=== PATIENT | female | born 1960 | race Caucasian/White ===

== ENCOUNTER 2018-05-23 15:36 | Emergency (ER) | payer OTHER ==
--- OUTSIDE RECORDS SUMMARY | 2018-05-23 15:40 | XMS REPORT ---
:1960 External Reference #:[id number] Author Organization [employer] Address [address] [place] [address] Phone [phone] Care Team Providers Name Role Phone Doyle Juarez MD Primary Care Physician Unavailable Payers Type Date Identification Numbers Payment Provider Subscriber Commercial Policy Number: [id number] [employer] Pramod [employer] Number: [id number] [address] PayID: [id number] [place] [address] Problems Date Description Provider Status Onset: 11/01/2017 Localized, primary osteoarthritis Marjorie Johnston M.D. 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 by 1mg every 8 weeks Loratadine Active Tablets 10mg 1 by mouth Unknown 000 every day prn Ibuprofen Active Tablets 200mg as needed Unknown 000 (very rare) Tylenol 0 Active Unknown 1000MG 000 Vitamin D-3 Active Unknown 000 Colyte With Active Solution 240gm only when Unknown Flavor Packs 000 Rec traveling Prednisone Hx Unknown 15MG 000 - 018 Medications Administered in Office Medication Date Status Form Strength Qnty SIG Indications Ordering Provider Depomedrol Administered Injection Marjorie 40MG 018 [place] Vital Signs Date Vital Result Comment 05/21/2018 Height 65 inches 5'5" Weight 157.00 lb Heart Rate 66 /min BP Systolic Sitting 117 mmHg BP Diastolic Sitting 75 mmHg Respiratory Rate 14 /min Pain Level 1 BMI (Body Mass Index) 26.1 kg/m2 03/07/2018 Height 65 inches 5'5" Weight 155.50 lb Heart Rate 70 /min BP Systolic Sitting 123 mmHg BP Diastolic Sitting 79 mmHg Respiratory Rate 14 /min Pain Level 1 BMI (Body Mass Index) 25.9 kg/m2 12/11/2017 Height 65 inches 5'5" Weight 154.00 lb BP Systolic 132 mmHg BP Diastolic 80 mmHg Body Temperature 98.0 F Pain Level 0 BMI (Body Mass Index) 25.6 kg/m2 11/01/2017 Height 64 inches 5'4" Heart Rate 82 /min BP Systolic 120 mmHg BP Diastolic 80 mmHg Respiratory Rate 20 /min Body Temperature 98.9 F Pain Level 0 02/09/2015 Height 64 inches 5'4" Weight 170.00 lb Heart Rate 64 /min BP Systolic 131 mmHg BP Diastolic 83 mmHg Pain Level 1 BMI (Body Mass Index) 29.2 kg/m2 01/07/2015 Height 64 inches 5'4" Heart Rate 63 /min BP Systolic 136 mmHg BP Diastolic 86 mmHg Pain Level 97 12/18/2014 Height 64 inches 5'4" Weight 170.00 lb Heart Rate 70 /min BP Systolic 137 mmHg BP Diastolic 96 mmHg Pain Level 1 BMI (Body Mass Index) 29.2 kg/m2 Results Test Date Test Result H/L Range Note Laboratory test finding 05/17/2018 C Reactive Protein 1.31 mg/L <8.01 Erythrocyte Sed Rate 8 mm/Hr 0-30 Basic Metabolic Panel 05/17/2018 Sodium 142 mmol/L 135-145 Potassium 4.1 mmol/L 3.5-5.0 Chloride 107 mmol/L 101-111 Co2 Carbon Dioxide 29 mmol/L 22-32 Anion Gap 6 mmol/L 2-11 Glucose 83 mg/dL 70-100 Blood Urea Nitrogen 17 mg/dL 6-24 Creatinine 1.03 mg/dL High 0.51-0.95 BUN/Creatinine Ratio 16.5 8-20 Calcium 9.2 mg/dL 8.6-10.3 Egfr Non- 54.8 >60 Egfr 66.4 >60 1 Anca AB Ser If 05/17/2018 C-Anca Negative Negative P-Anca Negative Negative 2 Cryoglobulin & Cryofibrinogen 05/17/2018 Cryoglobulin Negative %ppt Negative 3 Cryofibrinogen Negative Negative 4 Laboratory test finding 05/17/2018 Glomerular Basement <0.2 U 5 Membrane Laboratory test finding 03/07/2018 C Reactive Protein 6.49 mg/L <8.01 Basic Metabolic Panel 03/07/2018 Sodium 141 mmol/L 135-145 Potassium 4.4 mmol/L 3.5-5.0 Chloride 104 mmol/L 101-111 Co2 Carbon Dioxide 29 mmol/L 22-32 Anion Gap 8 mmol/L 2-11 Glucose 107 mg/dL High 70-100 Blood Urea Nitrogen 25 mg/dL High 6-24 Creatinine 0.97 mg/dL High 0.51-0.95 BUN/Creatinine Ratio 25.8 High 8-20 Calcium 9.4 mg/dL 8.6-10.3 Egfr Non- 59.0 >60 Egfr 71.4 >60 6 Laboratory test finding 03/07/2018 Vitamin D, 1,25 Dihydroxy 54 pg/mL 18- 78 7 Erythrocyte Sed Rate 10 mm/Hr 0-30 Connective Tissue Panel 03/07/2018 Anti-Nuclear Antibody 0.6 U 8 Cyclic Citrullinated Peptide <15.6 U 9 Interpretation See Comment 10 Laboratory test finding 12/25/2014 Urine Negative Negative 11 1 Because ethnic data is not always readily available, this report includes an eGFR for both -Americans and non- Americans. The National Kidney Disease Education Program (NKDEP) does not endorse the use of the MDRD equation for patients that are not between the ages of 18 and 70, are , have extremes of body size, muscle mass, or nutritional status, or are non- or non-. According to the National Kidney Foundation, irrespective of diagnosis, the stage of the disease is based on the level of kidney function: Stage Description GFR(mL/min/1.73 m(2)) 1 Kidney damage with normal or decreased GFR 90 2 Kidney damage with mild decrease in GFR 60-89 3 Moderate decrease in GFR 30-59 4 Severe decrease in GFR 15-29 5 Kidney failure <15 (or dialysis) 2 Negative for cANCA and pANCA patterns by immunofluorescence. ADDITIONAL INFORMATION This test was developed and its performance characteristics determined by [facility] in a manner consistent with CLIA requirements. This test has not been cleared or approved by the U.S. Food and Drug Administration. Test Performed by: [place] [address] 3 This test is negative at 24 hours. All samples are held and reviewed again at 7 days. If delayed precipitation occurs after 7 days, Immunofixation will be performed and an additional report will follow. 4 Test Performed by: [facility] - [address] [address] 5 REFERENCE VALUE <1.0 (Negative) Test Performed by: [address] [address] 6 Because ethnic data is not always readily available, this report includes an eGFR for both -Americans and non- Americans. The National Kidney Disease Education Program (NKDEP) does not endorse the use of the MDRD equation for patients that are not between the ages of 18 and 70, are , have extremes of body size, muscle mass, or nutritional status, or are non- or non-. According to the National Kidney Foundation, irrespective of diagnosis, the stage of the disease is based on the level of kidney function: Stage Description GFR(mL/min/1.73 m(2)) 1 Kidney damage with normal or decreased GFR 90 2 Kidney damage with mild decrease in GFR 60-89 3 Moderate decrease in GFR 30-59 4 Severe decrease in GFR 15-29 5 Kidney failure <15 (or dialysis) 7 ADDITIONAL INFORMATION This test was developed and its performance characteristics determined by [facility] in a manner consistent with CLIA requirements. This test has not been cleared or approved by the U.S. Food and Drug Administration. Test Performed by: [facility] [place] - [facility] [address] [place] [address] 8 REFERENCE VALUE <=1.0 (Negative) 9 REFERENCE VALUE <20.0 (Negative) 10 Tests for antibodies to dsDNA and PHIL antigens are not performed automatically unless the QUINTON result is > or= 3.0 U. Studies performed at [facility] indicate that positive QUINTON results <3.0 U are rarely accompanied by positive second order tests. Test Performed by: [facility] - [address] [address] 11 If is still suspected, please repeat test after 48 to 72 hours. This test detects intact HCG only and is indicated for the early detection of . Procedures Date CPT Code Description Status 04/03/2018 Bone Mineral Density Test Completed 11/01/2017 73403 Inject/Drain Joint/Bursa Major W/O US Completed 09/04/2017 80637 Allergy Test, Patch Or Application Completed 12/25/2014 03920 Arthroscopy,Knee,Meniscectomy Medial Or Lateral Completed 12/25/2014 18948 Arthroscopy,Knee,Meniscectomy Medial Or Lateral Completed Encounters Type Date Location Provider CPT E/M Dx Office Visit 05/21/2018 [facility] Mike Landers M.D. 67103 M35.3 9:20a Of Jessica R79.82 Z79.52 N18.9 Office Visit 03/07/2018 9:00a [facility] Mike Landers 86646 M35.3 Jessica Adame R79.82 Z79.52 M17.12 Office Visit 12/11/2017 8:00a [facility] Marjorie Johnston M.D. 45333 M17.12 C.M.A. M25.462 M25.562 Office Visit 11/01/2017 9:00a [facility]jor[facility] Johnston M.D. 72962 M17.12 C.M.A. M25.462 M25.562 Office Visit 09/07/2017 10:00a [facility] Dermatology Russ Gó[place] [address] L30.8 Office Visit 09/06/2017 10:00a [facility] Suma Gó[place] [address] L30.8 Office Visit 08/17/2017 9:00a [facility] Suma Gó[place] [address] L30.8 Office Visit 12/18/2014 8:00a [facility]jor[facility] Johnston M.D. 36385 715.96 C.M.A. 719.06 836.0 Plan of Care Future Appointment(s):09/20/2018 9:00 am - Mike Landers M.D. at [facility]05/21/2018 - Mike Landers M.D.M35.3 Polymyalgia pijtpigtfdX64.82 Elevated C-reactive protein (CRP)Z79.52 intermediate (current) use of systemic tynbekpqX51.9 Chronic kidney disease, unspecifiedFollow up: FOllow up in 4 months or sooner if needed
[2018-05-23 16:56] VITALS: BP 130/86
--- NOTE | 2018-05-23 17:09 | UC ---
Skin Complaint HPI - HPI Summary HPI Summary: 58 yo female presents with fish hook stuck in her left middle finger. She is unsure the date of her last tetanus. - History of Current Complaint Chief Complaint: UCUpperExtremity Time Seen by Provider: 05/23/18 17:09 Stated Complaint: FB IN HAND Hx Obtained From: Patient Onset/Duration: Sudden Onset Onset Severity: Mild Current Severity: Mild Pain Intensity: 1 Pain Scale Used: 0-10 Numeric - Allergy/Home Medications Allergies/Adverse Reactions: Allergies Allergy/AdvReac Type Severity Reaction Status Date / Time beef derived (bovine) Allergy Hives Verified 05/23/18 17:02 ibuprofen Allergy Hives Verified 05/23/18 17:02 SEASONAL ENVIRONMENTAL Allergy SINUS Uncoded 12/25/14 10:28 ALLERGIES IRRITATION Home Medications: Home Medications Glaucosomate 05/23/18 [History] Ibuprofen TAB* [Advil TAB*] 200 mg PO 16 PRN 05/23/18 [History Confirmed ] predniSONE [Prednisone 5 MG TAB] 5 mg PO DAILY 05/23/18 [History Confirmed 05/23] Review of Systems Constitutional: Negative Skin: Other - Fish hook left middle finger Respiratory: Negative Cardiovascular: Negative Musculoskeletal: Negative Neurological: Negative Psychological: Negative All Other Systems Reviewed And Are Negative: Yes PMH/Surg Hx/FS Hx/Imm Hx - Additional Past Medical History Additional PMH: None Previously Healthy: Yes - Surgical History Surgical History: Yes Surgery Procedure, Year, and Place: 1987 , [place]. 1980 LEFT KNEE ARTHROSCOPIC SURGERY, [place]. 1987 & 2007 UMBILICAL HERNIA REPA[place] [facility] [facility] [place]. 2004 ENDOMETRIAL ABLATION, [facility] [place] - Family History Known Family History: Positive: Hypertension - Social History Occupation: Employed Full-time Lives: With Family Alcohol Use: Weekly Alcohol Amount: 1 PER WEEK Substance Use Type: None Smoking Status (MU): Never Smoked Tobacco - Immunization History Most Recent Tetanus Shot: probably more than 5 years Physical Exam - Summary Physical Exam Summary: GENERAL: NAD. WDWN. No pain distress. SKIN: LEFT MIDDLE FINGER: Fish hook embedded within the skin at the volar PIP. CHEST: No accessory muscle use. Breathing comfortably and in no distress. CV: Pulses intact. Cap refill <2seconds NEURO: Alert. PSYCH: Age appropriate behavior. Triage Information Reviewed: Yes Vital Signs: Initial Vital Signs Temp 98.9 F 05/23/18 16:49 Pulse 71 05/23/18 16:49 Resp 16 05/23/18 16:49 BP 130/86 05/23/18 16:49 Pulse Ox 98 05/23/18 16:49 Vital Signs Reviewed: Yes Course/Dx - Course Course Of Treatment: tdap updated today. The procedure was explained to the pt and all questions were answered. A time out was performed, witnessed, and signed. 1mL of 2% lidocaine without epi was administered and good anesthetization was achieved. Hemostats were used to push through the fish hook and the barbara was clipped. Fish hook was then easily removed. Pt tolerated well and has FROM. Wound was irrigated with 500mL NS. - Diagnoses Provider Diagnoses: Fish hook removal left middle finger Discharge - Sign-Out/Discharge Documenting (check all that apply): Patient Departure All imaging exams completed and their final reports reviewed: No Studies - Discharge Plan Condition: Stable Disposition: HOME Patient Education Materials: Soft Tissue Foreign Body (ED) Referrals: Doyle Juarez MD [Primary Care Provider] - Additional Instructions: If you develop a fever, shortness of breath, chest pain, new or worsening symptoms - please call your PCP or go to the ED. 1) Keep the area clean and covered with a band-aid until well healed - Billing Disposition and Condition Condition: STABLE Disposition: Home
[2018-05-23] MEDS ORDERED: Tetan/Diph/Pertus SYR(Tdap)* 0.5 ML SYR(BOOSTRIX) use SYR IM ONE (17:16)
[2018-05-23] MEDS ORDERED: Lidocaine 2% PF * 5 ML VIAL INJ ONE (17:16)
== END 2018-05-23 17:38 | disposition home or self-care (01) ==
LOC: UCEAST 15:36
DX: S61.243A Puncture wound with foreign body of left middle finger without damage to nail, initial encounter (principal); X58.XXXA Exposure to other specified factors, initial encounter; Y92.9 Unspecified place or not applicable; Z23 Encounter for immunization; Z88.6 Allergy status to analgesic agent
CPT/HCPCS: 90715; 99211; G0463

== ENCOUNTER 2020-03-24 10:24 | Observation (INO) ==
[~2020-03-24 10:24] MED LIST: Buffered Lidocaine 1% SYRIN 1 ml INTRADERM ONE; Lactated Ringers 1000 ml BAG 1,000 ML IV SCH
[2020-03-24] MEDS ORDERED: Buffered Lidocaine 1% SYRIN 1 ml INTRADERM ONE (10:42)
[2020-03-24] MEDS ORDERED: ceFAZolin 2 GM PREMIX 2 GM/50 ML BAG ONE (10:42)
[2020-03-24] MEDS ORDERED: Naloxone 0.4 mg VIAL 0.4 mg/ml 1 ml VIAL IV PRN (12:23)
[2020-03-24] MEDS ORDERED: HYDROmorphone 1 MG/1 ML SYRINGE IV PRN (12:23)
[2020-03-24] MEDS ORDERED: Ondansetron 4 mg VIAL 2 MG/ML 2 ml VIAL IV PRN (12:23)
[2020-03-24] MEDS ORDERED: diPHENhydraMINE IV 50 MG/ML 1 ml VIAL (BENADRYL) IV PRN ×2 (12:23→16:10)
[2020-03-24] MEDS ORDERED: ROPIVACAINE 5 MG/ML 30 ML BTL (0.5%) ONE ×2 (12:28→12:42)
[2020-03-24] MEDS ORDERED: fentaNYL 100 mcg/2 ml 50 MCG/ML VIAL ONE ×2 (12:40)
[2020-03-24] MEDS ORDERED: Midazolam 2 mg/2 ml VIAL 1 mg/ml 2 ml VIAL (2 mg) ONE (12:40)
[2020-03-24] MEDS ORDERED: Lidocaine 2% PF 5 ML VIAL ONE (12:40)
[2020-03-24] MEDS ORDERED: Bupivacaine 0.5% SDV PF 30ML VIAL ONE (12:42)
[2020-03-24 12:49] LABS: Activated Partial Thrombo Time 32.3 seconds (26.0-38.0); INR 1.06 (0.82-1.09)
[2020-03-24] MEDS ORDERED: EPHEDrine (Pressors) 50 MG/ML VIAL ONE (13:54)
[2020-03-24] MEDS ORDERED: Propofol 10 MG/ML 20 ML BTL ONE (15:14)
[2020-03-24] MEDS ORDERED: Magnesium Hydroxide LIQ 30 ML UDC PO PRN (16:10)
[2020-03-24] MEDS ORDERED: Ondansetron ODT 4 mg TAB 4 MG TAB PO PRN (16:10)
[2020-03-24] MEDS ORDERED: oxyCODONE/Acetamin 5/325 mg TAB PO PRN (16:10)
[2020-03-24] MEDS ORDERED: diPHENhydraMINE 25 mg TAB PO PRN (16:10)
[2020-03-24] MEDS ORDERED: Lactulose 30 ml UDC PO PRN (16:10)
[2020-03-24] MEDS ORDERED: Morphine 2 MG/ML SYRINGE IV PRN (16:10)
[2020-03-24] MEDS ORDERED: oxyCODONE/Acetamin 5/325 mg TAB ONE (16:38)
[2020-03-24] MEDS: Lactated Ringers 1000 ml BAG 1,000 ML IV SCH (17:22)
[2020-03-24] MEDS: Magnesium Hydroxide LIQ 30 ML UDC PO SCH (20:38)
[2020-03-24] MEDS: ceFAZolin 1 GM ADVAN 1 GM in NS 0.9% 50 ML 50 ML IVPB SCH (20:39)
[2020-03-24] MEDS: Ondansetron 4 mg VIAL 2 MG/ML 2 ml VIAL IV PRN (20:43)
[2020-03-24] MEDS: oxyCODONE/Acetamin 5/325 mg TAB PO PRN (21:38)
[2020-03-25] MEDS ORDERED: Polyethylene Glycol 3350 17 GM PACKET PO PRN (00:01)
[2020-03-25] MEDS: oxyCODONE/Acetamin 5/325 mg TAB PO PRN ×2 (02:00→10:15)
[2020-03-25] MEDS: Lactated Ringers 1000 ml BAG 1,000 ML IV SCH (03:48)
[2020-03-25] MEDS: ceFAZolin 1 GM ADVAN 1 GM in NS 0.9% 50 ML 50 ML IVPB SCH ×2 (04:52→13:14)
[2020-03-25] MEDS: Ondansetron 4 mg VIAL 2 MG/ML 2 ml VIAL IV PRN (06:08)
[2020-03-25 06:33] LABS: Hematocrit 38 % (35-47); Hemoglobin 13.8 g/dL (12.0-16.0); Mean Platelet Volume 8.9 fL (7.4-10.4); Platelet Count 220 10^3/uL (150-450)
[2020-03-25 06:49] LABS: BUN/Creatinine Ratio 16.7 (8-20); Calcium 8.8 mg/dL (8.6-10.3); EGFR African American 66.7 (>60); EGFR Non-African American 55.1 (>60); Potassium 4.2 mmol/L (3.5-5.0)
[2020-03-25] MEDS: Magnesium Hydroxide LIQ 30 ML UDC PO SCH (08:57)
[2020-03-25] MEDS ORDERED: Calcium Carb 1250 mg TAB (500 mg elemental calcium) PO SCH (09:00)
[2020-03-25] MEDS ORDERED: Cholecalciferol (VIT D3) 1,000 unit TAB PO SCH (09:00)
[2020-03-25] MEDS ORDERED: Vitamin THERAPEUTIC TAB PO SCH (09:00)
[2020-03-25] MEDS ORDERED: Scopolamine PATCH Remove NOTE PATCH OFF ONE (09:00)
[2020-03-25] MEDS ORDERED: Prochlorperazine 5 mg/ml 2 ml VIAL (10 mg) IV PRN (10:57)
[2020-03-25 11:10] VITALS: BP 108/65
== END 2020-03-25 16:30 | disposition home or self-care (01) ==
LOC: SSU 10:24 → OR 10:24
PROVIDERS: ADMIT Orthopaedic Surgery Adult Reconstructive Orthopaedic Surgery; ATTEND Orthopaedic Surgery Adult Reconstructive Orthopaedic Surgery

== ENCOUNTER 2020-06-25 06:49 | Observation (INO) ==
[2020-06-25] MEDS ORDERED: ROPIVACAINE 5 MG/ML 30 ML BTL (0.5%) ONE (07:15)
[2020-06-25] MEDS ORDERED: Buffered Lidocaine 1% SYRIN 1 ml INTRADERM ONE (07:26)
[2020-06-25] MEDS ORDERED: ceFAZolin 2 GM PREMIX 2 GM/50 ML BAG ONE (07:26)
[2020-06-25] MEDS ORDERED: Midazolam 5 mg/5 ml VIAL 1 mg/ml 5 ml VIAL (5 mg) ONE (07:37)
[2020-06-25] MEDS ORDERED: fentaNYL 100 mcg/2 ml 50 MCG/ML VIAL ONE (07:37)
[2020-06-25] MEDS ORDERED: fentaNYL 250 mcg/5 ml 50 MCG/ML 5 ml VIAL (250 MCG) ONE (07:37)
[2020-06-25] MEDS ORDERED: Lidocaine 2% PF 5 ML VIAL ONE (09:04)
[2020-06-25] MEDS ORDERED: Bupivacaine 0.5% SDV PF 30ML VIAL ONE (09:18)
[2020-06-25] MEDS ORDERED: diPHENhydraMINE IV 50 MG/ML 1 ml VIAL (BENADRYL) IV PRN ×2 (10:20→12:01)
[2020-06-25] MEDS ORDERED: Ondansetron 4 mg VIAL 2 MG/ML 2 ml VIAL IV PRN ×2 (10:20→12:01)
[2020-06-25] MEDS ORDERED: Morphine 2 MG/ML SYRINGE IV PRN (10:20)
[2020-06-25] MEDS ORDERED: Lactulose 30 ml UDC PO PRN (10:20)
[2020-06-25] MEDS ORDERED: Ondansetron ODT 4 mg TAB 4 MG TAB PO PRN (10:20)
[2020-06-25] MEDS ORDERED: diPHENhydraMINE 25 mg TAB PO PRN (10:20)
[2020-06-25] MEDS ORDERED: Magnesium Hydroxide LIQ 30 ML UDC PO PRN (10:20)
[2020-06-25] MEDS ORDERED: HYDROmorphone 1 MG/1 ML SYRINGE IV PRN (12:01)
[2020-06-25] MEDS ORDERED: Naloxone 0.4 mg VIAL 0.4 mg/ml 1 ml VIAL IV PRN (12:01)
[2020-06-25] MEDS ORDERED: Ondansetron 4 mg VIAL 2 MG/ML 2 ml VIAL ONE (12:18)
[2020-06-25] MEDS: Lactated Ringers 1000 ml BAG 1,000 ML IV SCH ×2 (13:16→23:33)
[2020-06-25] MEDS: ceFAZolin 1 GM ADVAN 1 GM in NS 0.9% 50 ML 50 ML IVPB SCH (17:34)
[2020-06-25] MEDS: Magnesium Hydroxide LIQ 30 ML UDC PO SCH (19:51)
[2020-06-26] MEDS ORDERED: Polyethylene Glycol 3350 17 GM PACKET PO PRN (00:01)
[2020-06-26] MEDS: ceFAZolin 1 GM ADVAN 1 GM in NS 0.9% 50 ML 50 ML IVPB SCH ×2 (02:19→10:18)
[2020-06-26 05:23] LABS: Hematocrit 35 % (35-47); Hemoglobin 12.2 g/dL (12.0-16.0); Mean Platelet Volume 8.9 fL (7.4-10.4); Platelet Count 182 10^3/uL (150-450)
[2020-06-26 05:31] LABS: Calcium 8.1 mg/dL (8.6-10.3); EGFR African American 74.2 (>60); EGFR Non-African American 61.3 (>60)
[2020-06-26] MEDS: Magnesium Hydroxide LIQ 30 ML UDC PO SCH (07:56)
[2020-06-26] MEDS ORDERED: Vitamin THERAPEUTIC TAB PO SCH (09:00)
[2020-06-26 12:15] VITALS: BP 131/65
[2020-06-28] MEDS ORDERED: Scopolamine PATCH Remove NOTE PATCH OFF ONE (12:30)
== END 2020-06-26 13:10 | disposition home or self-care (01) ==
LOC: OR 06:49 → SSU 06:49
PROVIDERS: ADMIT Orthopaedic Surgery Adult Reconstructive Orthopaedic Surgery; ATTEND Orthopaedic Surgery Adult Reconstructive Orthopaedic Surgery